=== PATIENT | male | born 1955 | race Asian ===

== ENCOUNTER 2017-03-29 14:34 | Inpatient (IN) | payer OTHER ==
[~2017-03-29] VITALS: Ht 167.6 cm; Wt 69.2 kg
[2017-03-29] MEDS ORDERED: LISI-660 PO (14:41)
[2017-03-29] MEDS ORDERED: ATOR10TA84 PO (14:41)
[2017-03-29] MEDS ORDERED: METF500T4 PO (14:41)
[2017-03-29] MEDS ORDERED: OMEG-53 PO (14:41)
[2017-03-29 16:19] LABS: GLUCOSE,POINT OF CARE 123 MG/DL (70-110)
[2017-03-29 17:10] LABS: BASOPHILS % (AUTO) 0.5 % (0.0-2.0); EOSINOPHILS % (AUTO) 1.5 % (1.0-6.0); HEMATOCRIT 44.2 % (41-53); HEMOGLOBIN 15.1 g/dL (13.5-17.5); LYMPHOCYTES # (AUTO) 1.3 K/uL (1.0-4.8); LYMPHOCYTES % (AUTO) 12.5 % (22.0-44.0); MEAN CORPUSCULAR HEMOGLOBIN 31.4 pg (26.0-34.0); MEAN CORPUSCULAR HGB CONC 34.2 G/dL (31.0-37.0); MEAN CORPUSCULAR VOLUME 92 fL (80-100); MONOCYTES # (AUTO) 0.6 K/uL (0.1-1.0); MONOCYTES % (AUTO) 5.8 % (2.0-9.0); NEUTROPHILS # (AUTO) 8.1 K/uL (1.8-7.7); NEUTROPHILS % (AUTO) 79.7 % (40.0-70.0); PLATELET COUNT (AUTO) 339 K/uL (150-450); RED BLOOD CELL COUNT(AUTO) 4.81 MIL/uL (4.50-5.90); RED CELL DISTRIBUTION WIDTH 13.3 % (11.5-14.5); WHITE BLOOD COUNT (AUTO) 10.1 K/uL (4.5-11.0)
[2017-03-29 17:27] LABS: AMMONIA 34 umol/L (11-32)
[2017-03-29 17:28] LABS: TROPONIN I < 0.02 ng/mL (0.00-0.05)
[2017-03-29 17:33] LABS: ALANINE AMINOTRANSFERASE 149 U/L (12-78); ASPARTATE AMINOTRANSFERASE 163 U/L (15-37); CALCIUM, TOTAL 8.4 mg/dL (8.8-10.5); CARBON DIOXIDE 23 mmol/L (22-29); CHLORIDE 71 mmol/L (98-107); CREATININE 0.74 mg/dL (0.60-1.30); GLOMERULAR FILTR. RATE CALC > 60 mL/min (>60); POTASSIUM 3.9 mmol/L (3.5-5.1); TOTAL PROTEIN, SERUM 8.2 g/dL (6.4-8.2); UREA NITROGEN, BLOOD 10 mg/dL (7-18)
[2017-03-29 17:38] LABS: ANION GAP 10 mmol/L (8-16); SODIUM SERUM 104 mmol/L (136-145)
[2017-03-29 17:43] LABS: B-TYPE NATRIURETIC PEPTIDE 39 pg/mL (0-100)
[2017-03-29 17:59] LABS: CREATINE KINASE MB 57.5 ng/mL (0-5); CREATINE KINASE, TOTAL 3080 U/L (39-308)
[2017-03-29] MEDS ORDERED: SODIUM CHLORIDE 3% 500 ML IV ONE (18:15)
[2017-03-29 18:44] LABS: APPEARANCE,URINE CLEAR (CLEAR); GLUCOSE, URINE (UA) NEGATIVE (NEGATIVE); KETONES,URINE 15 mg/dL (NEGATIVE); LEUKOCYTE ESTERASE ,URINE NEGATIVE (NEGATIVE); OCCULT BLOOD,URINE SMALL (NEGATIVE); PROTEIN,URINE TRACE (NEGATIVE)
[2017-03-29] MEDS ORDERED: ACETAMINOPHEN 325 MG TABLET PO PRN ×2 (18:45→19:00)
[2017-03-29] MEDS ORDERED: ONDANSETRON HCL 4 MG/2 ML VIAL IVP PRN ×2 (18:45→19:00)
[2017-03-29 18:49] LABS: ADD UA MICROSCOPIC YES
[2017-03-29 18:54] LABS: SQUAMOUS EPITHELIAL CELL,UR Few /LPF (None Seen); WBC,URINE 0-2 /HPF (0-5)
[2017-03-29] MEDS ORDERED: MAGNESIUM HYDROXIDE SUSPENSION 30 ML UDCUP PO PRN (19:00)
[2017-03-29] MEDS ORDERED: MORPHINE SULFATE 2 MG/ML SYRINGE IVP PRN (19:00)
[2017-03-29] MEDS ORDERED: HYDROCODONE/ACETAMINOPHEN 5-325 MG TABLET PO PRN (19:00)
[2017-03-29] MEDS ORDERED: SODIUM BICARBONATE 100 MEQ in SODIUM CHLORIDE 0.9% 1,000 ML IV ONE (19:00)
[2017-03-29] MEDS ORDERED: DEXTROSE 50%-WATER 25 GM/50 ML SYRINGE IVP PRN (19:15)
[2017-03-29] MEDS ORDERED: HydrALAZINE HCL 20 MG/ML VIAL IVP PRN (19:15)
[2017-03-29] MEDS ORDERED: INSULIN ASPART 100 UNITS/ML SQ PRN (19:15)
[2017-03-29] MEDS ORDERED: DESMOPRESSIN ACETATE 4 MCG/ML VIAL IVP SCH (19:23)
[2017-03-29 19:45] LABS: ABG BASE EXCESS -4.8 mmol/L (-2.0-3.0); ABG HCO3 22.3 mmol/L (22.0-26.0); ABG PCO2 23 mmHg (35-45); TEMPERATURE, FAHRENHEIT, BG 98.6 FAHREN (96.0-98.6)
[2017-03-29 20:17] LABS: GLUCOSE,POINT OF CARE 116 MG/DL (70-110)
[2017-03-29 21:18] LABS: OSMOLALITY 218 mOS/kg (270-310)
[2017-03-29 21:26] LABS: ANION GAP 14 mmol/L (8-16); CALCIUM, TOTAL 8.4 mg/dL (8.8-10.5); CARBON DIOXIDE 19 mmol/L (22-29); CHLORIDE 72 mmol/L (98-107); CHOL/HDL RATIO 2.3 (4.2-7.3); CREATININE 0.85 mg/dL (0.60-1.30); GLOMERULAR FILTR. RATE CALC > 60 mL/min (>60); UREA NITROGEN, BLOOD 13 mg/dL (7-18); URIC ACID 4.1 mg/dL (2.6-7.2)
[2017-03-29 21:34] LABS: SODIUM SERUM 105 mmol/L (136-145)
[2017-03-29 21:51] LABS: THYROID STIMULATING HORMONE 0.08 uIU/mL (0.36-3.74)
[2017-03-30] MEDS ORDERED: PIPERACILLIN SODIUM/TAZOBACTAM 2.25 GM in DEXTROSE 5%-WATER 50 ML IV ONE ×2
[2017-03-30 08:00] VITALS: BP 134/73
[2017-03-30] MEDS ORDERED: NOREPINEPHRINE 4 MG/D5%-WATER 250 ML IV PRN (08:15)
[2017-03-30] MEDS: ATORVASTATIN CALCIUM 10 MG TABLET PO SCH (09:00)
[2017-03-30] MEDS ORDERED: SODIUM CHLORIDE 3% 500 ML IV ONE (09:00)
[2017-03-30] MEDS ORDERED: SODIUM CHLORIDE 3% 500 ML IV SCH (09:30)
[2017-03-30 10:14] LABS: ANION GAP 11 mmol/L (8-16); CALCIUM, TOTAL 7.4 mg/dL (8.8-10.5); CARBON DIOXIDE 19 mmol/L (22-29); CHLORIDE 79 mmol/L (98-107); CREATININE 1.02 mg/dL (0.60-1.30); GLOMERULAR FILTR. RATE CALC > 60 mL/min (>60); POTASSIUM 4.6 mmol/L (3.5-5.1); UREA NITROGEN, BLOOD 16 mg/dL (7-18)
[2017-03-30 10:16] LABS: SODIUM SERUM 109 mmol/L (136-145)
[2017-03-30 11:56] LABS: ANION GAP 11 mmol/L (8-16); CALCIUM, TOTAL 7.5 mg/dL (8.8-10.5); CARBON DIOXIDE 20 mmol/L (22-29); CHLORIDE 80 mmol/L (98-107); GLOMERULAR FILTR. RATE CALC > 60 mL/min (>60); POTASSIUM 4.5 mmol/L (3.5-5.1); UREA NITROGEN, BLOOD 15 mg/dL (7-18)
[2017-03-30 11:59] LABS: SODIUM SERUM 111 mmol/L (136-145)
[2017-03-30 12:00] VITALS: BP 114/55
[2017-03-30] MEDS: ACETAMINOPHEN 650 MG RECTAL SUPPOSITORY PR PRN (15:52)
[2017-03-30 16:00] VITALS: BP 118/63
[2017-03-30] MEDS ORDERED: VANCOMYCIN HCL 1 GM/D5% WATER 200 ML IV ONE (18:45)
[2017-03-30 20:00] VITALS: BP 115/91
[2017-03-30 21:24] LABS: ANION GAP 13 mmol/L (8-16); CALCIUM, TOTAL 7.8 mg/dL (8.8-10.5); CARBON DIOXIDE 18 mmol/L (22-29); CHLORIDE 82 mmol/L (98-107); CREATININE 0.93 mg/dL (0.60-1.30); GLOMERULAR FILTR. RATE CALC > 60 mL/min (>60); POTASSIUM 3.6 mmol/L (3.5-5.1); UREA NITROGEN, BLOOD 14 mg/dL (7-18)
[2017-03-30] MEDS: PIPERACILLIN/TAZO 3.375 GM/D5W 50 ML IV SCH (21:33)
[2017-03-30 21:37] LABS: SODIUM SERUM 113 mmol/L (136-145)
[2017-03-30 23:22] LABS: GLUCOSE,POINT OF CARE 106 MG/DL (70-110)
[2017-03-30 23:23] LABS: GLUCOSE,POINT OF CARE 90 MG/DL (70-110)
[2017-03-30 23:23] LABS: GLUCOSE,POINT OF CARE 138 MG/DL (70-110)
[2017-03-31] VITALS: BP 111/67
[2017-03-31] MEDS: PIPERACILLIN/TAZO 3.375 GM/D5W 50 ML IV SCH ×4 (02:46→20:10)
[2017-03-31 04:00] VITALS: BP 97/50
[2017-03-31 06:14] LABS: ANION GAP 12 mmol/L (8-16); CALCIUM, TOTAL 7.9 mg/dL (8.8-10.5); CARBON DIOXIDE 18 mmol/L (22-29); CHLORIDE 84 mmol/L (98-107); CREATINE KINASE MB 10.5 ng/mL (0-5); CREATININE 0.99 mg/dL (0.60-1.30); GLOMERULAR FILTR. RATE CALC > 60 mL/min (>60); POTASSIUM 3.8 mmol/L (3.5-5.1); UREA NITROGEN, BLOOD 11 mg/dL (7-18)
[2017-03-31] MEDS: VANCOMYCIN HCL 1 GM/D5% WATER 200 ML IV SCH ×2 (06:26→20:09)
[2017-03-31 06:41] LABS: CREATINE KINASE, TOTAL 2184 U/L (39-308)
[2017-03-31 06:43] LABS: SODIUM SERUM 114 mmol/L (136-145)
[2017-03-31 07:02] LABS: GLUCOSE,POINT OF CARE 112 MG/DL (70-110)
[2017-03-31 08:00] VITALS: BP 115/70
[2017-03-31 08:07] LABS: HEPATITIS Bs ANTIGEN SCREEN P Negative (Negative); HEPATITIS C AB SCREEN <0.1 s/co ratio (0.0-0.9)
[2017-03-31 09:17] LABS: ANION GAP 11 mmol/L (8-16); CALCIUM, TOTAL 8.1 mg/dL (8.8-10.5); CARBON DIOXIDE 18 mmol/L (22-29); CHLORIDE 84 mmol/L (98-107); GLOMERULAR FILTR. RATE CALC > 60 mL/min (>60); POTASSIUM 3.8 mmol/L (3.5-5.1); UREA NITROGEN, BLOOD 9 mg/dL (7-18)
[2017-03-31 09:19] LABS: SODIUM SERUM 113 mmol/L (136-145)
[2017-03-31] MEDS ORDERED: SODIUM CHLORIDE 3% 500 ML IV SCH ×2 (10:00)
[2017-03-31] MEDS: ATORVASTATIN CALCIUM 10 MG TABLET PO SCH (10:33)
[2017-03-31 12:00] VITALS: BP 118/75
[2017-03-31] MEDS ORDERED: METOPROLOL TARTRATE 25 MG TABLET PO SCH (14:00)
[2017-03-31 14:34] LABS: GLUCOSE,POINT OF CARE 114 MG/DL (70-110)
[2017-03-31 16:00] VITALS: BP 114/60
[2017-03-31 18:22] LABS: GLUCOSE,POINT OF CARE 108 MG/DL (70-110)
[2017-03-31 20:00] VITALS: BP 138/87
[2017-03-31 20:41] LABS: ANION GAP 12 mmol/L (8-16); CARBON DIOXIDE 18 mmol/L (22-29); CHLORIDE 87 mmol/L (98-107); CREATININE 1.04 mg/dL (0.60-1.30); GLOMERULAR FILTR. RATE CALC > 60 mL/min (>60); POTASSIUM 3.5 mmol/L (3.5-5.1); UREA NITROGEN, BLOOD 11 mg/dL (7-18)
[2017-03-31 20:51] LABS: SODIUM SERUM 117 mmol/L (136-145)
[2017-03-31 21:32] LABS: GLUCOSE,POINT OF CARE 113 MG/DL (70-110)
[2017-03-31] MEDS ORDERED: POTASSIUM CHLORIDE 20 MEQ ER TABLET PO ONE (22:00)
[2017-04-01] VITALS (7 sets, daily range): BP systolic 94–107; BP diastolic 55–69
[2017-04-01] MEDS ORDERED: SODIUM CHLORIDE 0.9% 250 ML IV ONE (03:13)
[2017-04-01 03:14] LABS: ANION GAP 11 mmol/L (8-16); CALCIUM, TOTAL 7.8 mg/dL (8.8-10.5); CARBON DIOXIDE 18 mmol/L (22-29); CHLORIDE 90 mmol/L (98-107); CREATININE 1.07 mg/dL (0.60-1.30); GLOMERULAR FILTR. RATE CALC > 60 mL/min (>60); POTASSIUM 3.9 mmol/L (3.5-5.1); UREA NITROGEN, BLOOD 10 mg/dL (7-18)
[2017-04-01 03:23] LABS: SODIUM SERUM 119 mmol/L (136-145)
[2017-04-01] MEDS: PIPERACILLIN/TAZO 3.375 GM/D5W 50 ML IV SCH ×4 (03:33→19:44)
[2017-04-01] MEDS: VANCOMYCIN HCL 1 GM/D5% WATER 200 ML IV SCH (06:24)
[2017-04-01 07:06] LABS: ANION GAP 13 mmol/L (8-16); CALCIUM, TOTAL 8.1 mg/dL (8.8-10.5); CARBON DIOXIDE 16 mmol/L (22-29); CHLORIDE 91 mmol/L (98-107); CREATININE 1.03 mg/dL (0.60-1.30); GLOMERULAR FILTR. RATE CALC > 60 mL/min (>60); UREA NITROGEN, BLOOD 10 mg/dL (7-18)
[2017-04-01 07:33] LABS: GLUCOSE,POINT OF CARE 104 MG/DL (70-110)
[2017-04-01 07:47] LABS: SODIUM SERUM 120 mmol/L (136-145)
[2017-04-01] MEDS: SODIUM CHLORIDE 3% 500 ML IV SCH ×2 (11:28→12:54)
[2017-04-01] MEDS ORDERED: VANCOMYCIN HCL 1 GM/D5% WATER 200 ML IV SCH (16:00)
[2017-04-01] MEDS: ACETAMINOPHEN 650 MG RECTAL SUPPOSITORY PR PRN (20:01)
[2017-04-01 20:40] LABS: GLUCOSE,POINT OF CARE 112 MG/DL (70-110)
[2017-04-01 20:40] LABS: GLUCOSE,POINT OF CARE 117 MG/DL (70-110)
[2017-04-01] MEDS ORDERED: SODIUM CHLORIDE 3% 500 ML IV SCH (21:15)
[2017-04-02] MEDS: PIPERACILLIN/TAZO 3.375 GM/D5W 50 ML IV SCH ×3 (01:39→14:43)
[2017-04-02 04:33] VITALS: BP 103/60
[2017-04-02 05:58] LABS: GLUCOSE,POINT OF CARE 119 MG/DL (70-110)
[2017-04-02 06:50] LABS: BASOPHILS # (AUTO) 0.04 K/uL (0.00-0.20); BASOPHILS % (AUTO) 0.6 % (0.0-2.0); EOSINOPHILS # (AUTO) 0.16 K/uL (0.00-0.70); EOSINOPHILS % (AUTO) 2.66 % (1.0-6.0); HEMATOCRIT 38.1 % (41-53); HEMOGLOBIN 12.9 g/dL (13.5-17.5); LYMPHOCYTES # (AUTO) 1.1 K/uL (1.0-4.8); LYMPHOCYTES % (AUTO) 18.8 % (22.0-44.0); MEAN CORPUSCULAR HGB CONC 33.8 G/dL (31.0-37.0); MEAN CORPUSCULAR VOLUME 92 fL (80-100); MONOCYTES # (AUTO) 0.5 K/uL (0.1-1.0); MONOCYTES % (AUTO) 7.7 % (2.0-9.0); NEUTROPHILS # (AUTO) 4.3 K/uL (1.8-7.7); NEUTROPHILS % (AUTO) 70.3 % (40.0-70.0); PLATELET COUNT (AUTO) 297 K/uL (150-450); RED BLOOD CELL COUNT(AUTO) 4.16 MIL/uL (4.50-5.90); RED CELL DISTRIBUTION WIDTH 13.9 % (11.5-14.5); WHITE BLOOD COUNT (AUTO) 6.1 K/uL (4.5-11.0)
[2017-04-02 07:22] VITALS: BP 99/55
[2017-04-02 07:32] LABS: ANION GAP 10 mmol/L (8-16); CALCIUM, TOTAL 7.6 mg/dL (8.8-10.5); CARBON DIOXIDE 20 mmol/L (22-29); CHLORIDE 95 mmol/L (98-107); CREATININE 0.95 mg/dL (0.60-1.30); GLOMERULAR FILTR. RATE CALC > 60 mL/min (>60); POTASSIUM 3.4 mmol/L (3.5-5.1); SODIUM SERUM 125 mmol/L (136-145); UREA NITROGEN, BLOOD 6 mg/dL (7-18)
[2017-04-02 07:58] LABS: PROCALCITONIN (PCT) 0.42 ng/mL (<0.50)
[2017-04-02 12:04] VITALS: BP 117/57
[2017-04-02 15:21] LABS: GLUCOSE,POINT OF CARE 89 MG/DL (70-110)
[2017-04-02 16:16] VITALS: BP 112/63
[2017-04-02 19:55] VITALS: BP 125/63
[2017-04-02 23:20] VITALS: BP 121/79
[2017-04-03 03:43] VITALS: BP 114/69
[2017-04-03] MEDS ORDERED: COSYNTROPIN 0.25 MG VIAL IVP ONE (07:00)
[2017-04-03 07:05] LABS: ANION GAP 9 mmol/L (8-16); CARBON DIOXIDE 24 mmol/L (22-29); CHLORIDE 94 mmol/L (98-107); CREATININE 0.98 mg/dL (0.60-1.30); GLOMERULAR FILTR. RATE CALC > 60 mL/min (>60); POTASSIUM 3.5 mmol/L (3.5-5.1); SODIUM SERUM 127 mmol/L (136-145); UREA NITROGEN, BLOOD 5 mg/dL (7-18)
[2017-04-03 07:34] VITALS: BP 122/77
[2017-04-03] MEDS ORDERED: POTASSIUM CHLORIDE 20 MEQ ER TABLET PO ONE (09:00)
[2017-04-03] MEDS: SODIUM CHLORIDE 1 GM TABLET PO SCH ×2 (09:45→17:08)
[2017-04-03 11:09] LABS: GLUCOSE,POINT OF CARE 132 MG/DL (70-110)
[2017-04-03 11:11] VITALS: BP 135/82
[2017-04-03 11:14] LABS: GLUCOSE,POINT OF CARE 92 MG/DL (70-110)
[2017-04-03] MEDS ORDERED: NACL1 PO (13:12)
[2017-04-03 15:28] LABS: GLUCOSE COMMENT 1 Received Meds; GLUCOSE,POINT OF CARE 158 MG/DL (70-110)
[2017-04-03 15:28] LABS: GLUCOSE,POINT OF CARE 129 MG/DL (70-110)
[2017-04-03 15:28] LABS: GLUCOSE,POINT OF CARE 103 MG/DL (70-110)
[2017-04-03 15:55] VITALS: BP 122/79
== END 2017-04-03 17:30 | disposition home or self-care (01) | DRG 425 ==
LOC: EMS 14:36 → ICU 03-30 06:08 → 5N 04-01 02:25
PROVIDERS: ADMIT Hospitalist; ATTEND Hospitalist
DX: E87.1 Hypo-osmolality and hyponatremia (principal); G93.41 Metabolic encephalopathy; A86 Unspecified viral encephalitis; J84.10 Pulmonary fibrosis, unspecified; M62.82 Rhabdomyolysis; R65.10 Systemic inflammatory response syndrome (SIRS) of non-infectious origin without acute organ dysfunction; I10 Essential (primary) hypertension; E11.9 Type 2 diabetes mellitus without complications; R31.29 Other microscopic hematuria; J98.11 Atelectasis; E78.00 Pure hypercholesterolemia, unspecified
CPT/HCPCS: 51702; 70450; 71250; 74176; 76700; 80074; 82533; 82805; 82962; 83036; 83930; 83935; 84133; 84145; 84295; 84300; 84439; 84443; 84540; 84550; 86140; 87040; 87081; 87086; 93005; 96365; 96366; 96372; 96375; 97116; 97162; 97530; 99291; J0834; J2543; J2597; J3230; J3370; J3490; J7030; J7050; J7060

== ENCOUNTER 2019-04-01 13:15 | Inpatient (IN) | payer MEDICARE, OTHER ==
[~2019-04-01] VITALS: Ht 167.6 cm; Wt 72.5 kg
[~2019-04-01 13:15] MED LIST: ATOR40TA71 PO; FISH1 PO; METF-960 PO; NACL1 PO
[2019-04-01 14:46] LABS: EOSINOPHILS % (AUTO) 4.6 % (1.0-6.0); HEMATOCRIT 34.7 % (41-53); HEMOGLOBIN 11.8 g/dL (13.5-17.5); LYMPHOCYTES # (AUTO) 1.6 K/uL (1.0-4.8); LYMPHOCYTES % (AUTO) 30.9 % (22.0-44.0); MEAN CORPUSCULAR HEMOGLOBIN 29.8 pg (26.0-34.0); MEAN CORPUSCULAR HGB CONC 34.1 G/dL (31.0-37.0); MEAN CORPUSCULAR VOLUME 88 fL (80-100); MONOCYTES # (AUTO) 0.4 K/uL (0.1-1.0); MONOCYTES % (AUTO) 7.5 % (2.0-9.0); NEUTROPHILS # (AUTO) 2.9 K/uL (1.8-7.7); PLATELET COUNT (AUTO) 362 K/uL (150-450); RED BLOOD CELL COUNT(AUTO) 3.96 MIL/uL (4.50-5.90)
[2019-04-01 15:00] LABS: INR 1.1 (0.9-1.1); PROTHROMBIN TIME 10.9 SEC (9.4-11.6)
[2019-04-01 15:05] LABS: B-TYPE NATRIURETIC PEPTIDE 14 pg/mL (0-100)
[2019-04-01 15:06] LABS: APPEARANCE,URINE CLEAR (CLEAR); BILIRUBIN,URINE NEGATIVE (NEGATIVE); GLUCOSE, URINE (UA) NEGATIVE (NEGATIVE); KETONES,URINE NEGATIVE (NEGATIVE); LEUKOCYTE ESTERASE ,URINE NEGATIVE (NEGATIVE); NITRATE,URINE NEGATIVE (NEGATIVE); OCCULT BLOOD,URINE NEGATIVE (NEGATIVE); PROTEIN,URINE NEGATIVE (NEGATIVE)
[2019-04-01 15:15] LABS: ALANINE AMINOTRANSFERASE 32 U/L (12-78); ALBUMIN 3.5 g/dL (3.4-5.0); ALKALINE PHOSPHATASE 132 U/L (46-116); ASPARTATE AMINOTRANSFERASE 50 U/L (15-37); BILIRUBIN,TOTAL 0.8 mg/dL (0.1-1.0); CALCIUM, TOTAL 8.7 mg/dL (8.8-10.5); CREATINE KINASE, TOTAL ONLY 461 U/L (39-308); GLOMERULAR FILTR. RATE CALC > 60 mL/min (>60); GLUCOSE,RANDOM 94 mg/dL (70-110); TOTAL PROTEIN, SERUM 6.7 g/dL (6.4-8.2); UREA NITROGEN, BLOOD 9 mg/dL (7-18)
[2019-04-01 15:16] LABS: ANION GAP 3 mmol/L (8-16); CARBON DIOXIDE 28 mmol/L (22-29); CHLORIDE 86 mmol/L (98-107); POTASSIUM 3.7 mmol/L (3.5-5.1)
[2019-04-01 15:18] LABS: SODIUM SERUM 117 mmol/L (136-145)
[2019-04-01] MEDS ORDERED: ACETAMINOPHEN 325 MG TABLET PO PRN (15:45)
[2019-04-01] MEDS ORDERED: SODIUM CHLORIDE 3% 500 ML IV ONE (15:45)
[2019-04-01] MEDS ORDERED: 0.9% SODIUM CHLORIDE 10 ML SYRINGE IVP PRN (15:45)
[2019-04-01 17:56] VITALS: BP 144/88
[2019-04-01 18:05] LABS: ALANINE AMINOTRANSFERASE 32 U/L (12-78); ALBUMIN 3.2 g/dL (3.4-5.0); ALKALINE PHOSPHATASE 120 U/L (46-116); ANION GAP 13 mmol/L (8-16); ASPARTATE AMINOTRANSFERASE 50 U/L (15-37); BILIRUBIN,TOTAL 0.8 mg/dL (0.1-1.0); CARBON DIOXIDE 23 mmol/L (22-29); CHLORIDE 84 mmol/L (98-107); CREATININE 0.89 mg/dL (0.60-1.30); GLOMERULAR FILTR. RATE CALC > 60 mL/min (>60); GLUCOSE,RANDOM 91 mg/dL (70-110); POTASSIUM 3.5 mmol/L (3.5-5.1); TOTAL PROTEIN, SERUM 6.2 g/dL (6.4-8.2); UREA NITROGEN, BLOOD 10 mg/dL (7-18)
[2019-04-01 18:15] LABS: SODIUM SERUM 120 mmol/L (136-145)
[2019-04-01 20:14] VITALS: BP 149/93
[2019-04-01 23:41] VITALS: BP 131/74
[2019-04-02 05:26] VITALS: BP 126/66
[2019-04-02 06:40] LABS: EOSINOPHILS % (AUTO) 3.3 % (1.0-6.0); HEMATOCRIT 34.5 % (41-53); HEMOGLOBIN 11.8 g/dL (13.5-17.5); LYMPHOCYTES # (AUTO) 1.6 K/uL (1.0-4.8); LYMPHOCYTES % (AUTO) 31.6 % (22.0-44.0); MEAN CORPUSCULAR HGB CONC 34.3 G/dL (31.0-37.0); MEAN CORPUSCULAR VOLUME 88 fL (80-100); MONOCYTES # (AUTO) 0.4 K/uL (0.1-1.0); NEUTROPHILS # (AUTO) 2.8 K/uL (1.8-7.7); NEUTROPHILS % (AUTO) 56.1 % (40.0-70.0); PLATELET COUNT (AUTO) 357 K/uL (150-450); RED BLOOD CELL COUNT(AUTO) 3.94 MIL/uL (4.50-5.90); RED CELL DISTRIBUTION WIDTH 14.3 % (11.5-14.5)
[2019-04-02 07:15] LABS: ALANINE AMINOTRANSFERASE 35 U/L (12-78); ALBUMIN 3.4 g/dL (3.4-5.0); ALKALINE PHOSPHATASE 142 U/L (46-116); ANION GAP 8 mmol/L (8-16); ASPARTATE AMINOTRANSFERASE 53 U/L (15-37); BILIRUBIN,TOTAL 0.9 mg/dL (0.1-1.0); CALCIUM, TOTAL 8.3 mg/dL (8.8-10.5); CARBON DIOXIDE 24 mmol/L (22-29); CHLORIDE 90 mmol/L (98-107); CREATININE 0.88 mg/dL (0.60-1.30); GLOMERULAR FILTR. RATE CALC > 60 mL/min (>60); GLUCOSE,RANDOM 80 mg/dL (70-110); POTASSIUM 3.9 mmol/L (3.5-5.1); THYROID STIMULATING HORMONE 0.62 uIU/mL (0.36-3.74); TOTAL PROTEIN, SERUM 6.6 g/dL (6.4-8.2); UREA NITROGEN, BLOOD 7 mg/dL (7-18)
[2019-04-02 07:17] LABS: SODIUM SERUM 122 mmol/L (136-145)
[2019-04-02 07:26] LABS: URIC ACID 2.6 mg/dL (2.6-7.2)
[2019-04-02 08:16] VITALS: BP 114/76
[2019-04-02] MEDS ORDERED: SODIUM CHLORIDE 3% 500 ML IV SCH (11:00)
[2019-04-02 11:03] VITALS: BP 125/68
[2019-04-02 15:59] VITALS: BP 142/76
[2019-04-02 20:16] VITALS: BP 128/75
[2019-04-03] VITALS (7 sets, daily range): BP systolic 110–135; BP diastolic 57–76
[2019-04-03 00:20] LABS: CREATININE,URINE RANDOM 44.4 mg/dL (30.0-125.0)
[2019-04-03 11:31] LABS: ANION GAP 8 mmol/L (8-16); CALCIUM, TOTAL 8.6 mg/dL (8.8-10.5); CARBON DIOXIDE 25 mmol/L (22-29); CHLORIDE 93 mmol/L (98-107); CREATININE 0.96 mg/dL (0.60-1.30); GLOMERULAR FILTR. RATE CALC > 60 mL/min (>60); GLUCOSE,RANDOM 98 mg/dL (70-110); SODIUM SERUM 126 mmol/L (136-145); UREA NITROGEN, BLOOD 7 mg/dL (7-18)
[2019-04-03 11:44] LABS: OSMOLALITY 258 mOS/kg (270-310)
[2019-04-03] MEDS: FLUDROCORTISONE ACETATE 0.1 MG TABLET PO SCH (12:44)
[2019-04-03 14:29] LABS: SODIUM SERUM 127 mmol/L (136-145)
[2019-04-03 14:35] LABS: OSMOLALITY 264 mOS/kg (270-310)
[2019-04-03] MEDS ORDERED: SODIUM CHLORIDE 1 GM TABLET PO ONE (15:00)
[2019-04-04 04:52] VITALS: BP 131/72
[2019-04-04 07:06] LABS: ANION GAP 8 mmol/L (8-16); CALCIUM, TOTAL 8.5 mg/dL (8.8-10.5); CARBON DIOXIDE 28 mmol/L (22-29); CHLORIDE 93 mmol/L (98-107); CREATININE 0.84 mg/dL (0.60-1.30); GLOMERULAR FILTR. RATE CALC > 60 mL/min (>60); GLUCOSE,RANDOM 91 mg/dL (70-110); SODIUM SERUM 129 mmol/L (136-145); UREA NITROGEN, BLOOD 9 mg/dL (7-18)
[2019-04-04 08:22] VITALS: BP 122/75
[2019-04-04 12:00] VITALS: BP 136/74
[2019-04-04] MEDS: FLUDROCORTISONE ACETATE 0.1 MG TABLET PO SCH (12:39)
[2019-04-04] MEDS ORDERED: MAGNESIUM HYDROXIDE SUSPENSION 30 ML UDCUP PO PRN (13:15)
[2019-04-04] MEDS ORDERED: HYDROCODONE/ACETAMINOPHEN 5-325 MG TABLET PO PRN (13:15)
[2019-04-04] MEDS ORDERED: ALBUTEROL SULFATE 2.5 MG/0.5 ML NEB SOLUTION NEB PRN (13:15)
[2019-04-04] MEDS ORDERED: MORPHINE SULFATE 2 MG/ML SYRINGE IVP PRN (13:15)
[2019-04-04] MEDS ORDERED: ONDANSETRON HCL 4 MG/2 ML VIAL IVP PRN (13:15)
[2019-04-04] MEDS ORDERED: BISACODYL 10 MG RECTAL RECTAL SUPPOSITORY PR PRN (13:15)
[2019-04-04] MEDS ORDERED: ACETAMINOPHEN 325 MG TABLET PO PRN (13:15)
[2019-04-04] MEDS ORDERED: ZOLPIDEM TARTRATE 5 MG TABLET PO PRN (13:15)
[2019-04-04] MEDS ORDERED: IPRATROPIUM BROMIDE 0.5 MG/2.5 ML NEB SOLUTION NEB PRN (13:15)
[2019-04-04 14:56] VITALS: BP 136/78
[2019-04-04] MEDS ORDERED: HEPARIN SODIUM,PORCINE 5,000 UNITS/ML VIAL SQ SCH (16:00)
[2019-04-04] MEDS ORDERED: FLUD.1 PO (17:09)
[2019-04-04] MEDS ORDERED: DOCUSATE SODIUM 100 MG CAPSULE PO SCH (21:00)
== END 2019-04-04 17:30 | disposition home or self-care (01) | DRG 641 ==
LOC: EMS 13:18 → 5S 16:30
PROVIDERS: ADMIT Hospitalist; ATTEND Hospitalist
DX: E87.1 Hypo-osmolality and hyponatremia (principal); I10 Essential (primary) hypertension; E11.9 Type 2 diabetes mellitus without complications; E78.5 Hyperlipidemia, unspecified; E78.00 Pure hypercholesterolemia, unspecified; Z79.84 Long term (current) use of oral hypoglycemic drugs
CPT/HCPCS: 82533; 82570; 83036; 83930; 84133; 84295; 84300; 84443; 84550; 93005; G0378; J7030

== ENCOUNTER → 2019-04-11 | Outpatient (CLI) | payer MEDICARE, OTHER ==
[~2019-04-11] MED LIST changes: +FLUD.1 PO; -NACL1 PO
[2019-04-11 12:59] LABS: BASOPHILS % (AUTO) 1.2 % (0.0-2.0); EOSINOPHILS % (AUTO) 5.5 % (1.0-6.0); HEMATOCRIT 35.2 % (41-53); HEMOGLOBIN 12.2 g/dL (13.5-17.5); LYMPHOCYTES # (AUTO) 1.8 K/uL (1.0-4.8); LYMPHOCYTES % (AUTO) 34.7 % (22.0-44.0); MEAN CORPUSCULAR HEMOGLOBIN 30.2 pg (26.0-34.0); MEAN CORPUSCULAR HGB CONC 34.7 G/dL (31.0-37.0); MEAN CORPUSCULAR VOLUME 87 fL (80-100); MONOCYTES # (AUTO) 0.2 K/uL (0.1-1.0); MONOCYTES % (AUTO) 3.9 % (2.0-9.0); NEUTROPHILS # (AUTO) 2.9 K/uL (1.8-7.7); NEUTROPHILS % (AUTO) 54.7 % (40.0-70.0); PLATELET COUNT (AUTO) 448 K/uL (150-450); RED BLOOD CELL COUNT(AUTO) 4.04 MIL/uL (4.50-5.90); RED CELL DISTRIBUTION WIDTH 14.2 % (11.5-14.5)
[2019-04-11 13:10] LABS: ALBUMIN 3.8 g/dL (3.4-5.0); ANION GAP 7 mmol/L (8-16); CALCIUM, TOTAL 8.7 mg/dL (8.8-10.5); CARBON DIOXIDE 29 mmol/L (22-29); CHLORIDE 89 mmol/L (98-107); CREATININE 1.01 mg/dL (0.60-1.30); GLOMERULAR FILTR. RATE CALC > 60 mL/min (>60); GLUCOSE,RANDOM 88 mg/dL (70-110); PHOSPHORUS 3.5 mg/dL (2.5-4.9); POTASSIUM 3.6 mmol/L (3.5-5.1); SODIUM SERUM 125 mmol/L (136-145); UREA NITROGEN, BLOOD 11 mg/dL (7-18)
[2019-04-11 13:40] LABS: APPEARANCE,URINE CLEAR (CLEAR); BILIRUBIN,URINE PRELIM. POSITIVE (NEGATIVE); GLUCOSE, URINE (UA) NEGATIVE (NEGATIVE); KETONES,URINE NEGATIVE (NEGATIVE); LEUKOCYTE ESTERASE ,URINE NEGATIVE (NEGATIVE); NITRATE,URINE NEGATIVE (NEGATIVE); OCCULT BLOOD,URINE NEGATIVE (NEGATIVE); PROTEIN,URINE NEGATIVE (NEGATIVE)
[2019-04-11 13:51] LABS: OSMOLALITY,URINE 729 mOS/kg (50-1200)
[2019-04-11 14:37] LABS: POTASSIUM,URINE RANDOM 80 mmol/L (12-75); SODIUM,URINE RANDOM 13 mmol/l (20-110)
== END | disposition home or self-care (01) ==
LOC: LABPV 11:33
PROVIDERS: ATTEND Internal Medicine Nephrology
DX: I10 Essential (primary) hypertension (principal); E87.1 Hypo-osmolality and hyponatremia
CPT/HCPCS: 82043; 82570; 83935; 84133; 84300

== ENCOUNTER 2024-09-03 20:25 | Inpatient (IN) | payer OTHER ==
[~2024-09-03] VITALS: Ht 167.6 cm; Wt 65.8 kg
[~2024-09-03 20:25] MED LIST changes: +METF-1211 PO; -METF-960 PO
[2024-09-03] MEDS ORDERED: LISI5TAB21 PO (20:45)
[2024-09-03] MEDS ORDERED: METF-444 PO (20:45)
[2024-09-03 21:25] LABS: BASOPHILS % (AUTO) 0.5 % (0.0-2.0); EOSINOPHILS % (AUTO) 2.1 % (1.0-6.0); HEMOGLOBIN 13.6 g/dL (13.5-17.5); LYMPHOCYTES % (AUTO) 12.6 % (22.0-44.0); MEAN CORPUSCULAR HEMOGLOBIN 30.5 pg (26.0-34.0); MEAN CORPUSCULAR VOLUME 87 fL (80-100); MONOCYTES # (AUTO) 0.4 K/uL (0.1-1.0); MONOCYTES % (AUTO) 5.4 % (2.0-9.0); NEUTROPHILS # (AUTO) 6.2 K/uL (1.8-7.7); NEUTROPHILS % (AUTO) 79.4 % (40.0-70.0); PLATELET COUNT (AUTO) 394 K/uL (150-450); RED BLOOD CELL COUNT(AUTO) 4.47 MIL/uL (4.50-5.90); RED CELL DISTRIBUTION WIDTH 13.7 % (11.5-14.5); WHITE BLOOD COUNT (AUTO) 7.8 K/uL (4.5-11.0)
[2024-09-03 21:33] LABS: ANION GAP 10 mmol/L (8-16); CALCIUM, TOTAL 8.6 mg/dL (8.8-10.5); CARBON DIOXIDE 23 mmol/L (22-29); CHLORIDE 77 mmol/L (98-107); CREATININE 0.82 mg/dL (0.60-1.30); GLOMERULAR FILTR. RATE CALC > 60 mL/min (>60); GLUCOSE,RANDOM 116 mg/dL (70-110); POTASSIUM 4.7 mmol/L (3.5-5.1); UREA NITROGEN, BLOOD 13 mg/dL (7-18)
[2024-09-03 21:35] LABS: SODIUM SERUM 110 mmol/L (136-145)
[2024-09-03 22:28] LABS: ALCOHOL, BLOOD (SERUM) < 3 mg/dL (0-10)
[2024-09-03] MEDS ORDERED: ACETAMINOPHEN 325 MG TABLET PO PRN (22:30)
[2024-09-03] MEDS ORDERED: ONDANSETRON HCL 4 MG/2 ML VIAL IVP PRN (22:30)
[2024-09-03 22:33] LABS: LIPASE 89 U/L (16-77); TROPONIN I-HIGH SENSITIVITY 6 ng/L (<76)
[2024-09-03] MEDS: SODIUM CHLORIDE 3% 500 ML IV ONE ×2 (22:38→23:58)
[2024-09-03 22:39] LABS: B-TYPE NATRIURETIC PEPTIDE 23 pg/mL (0-100)
[2024-09-03 23:21] LABS: POTASSIUM 4.6 mmol/L (3.5-5.1)
[2024-09-03] MEDS: HEPARIN SODIUM,PORCINE 5,000 UNITS/ML VIAL SQ SCH (23:59)
[2024-09-04] MEDS ORDERED: DEXTROSE 50%-WATER 25 GM/50 ML SYRINGE IVP PRN (00:30)
[2024-09-04] MEDS ORDERED: INSULIN LISPRO 100 UNITS/ML SQ PRN (00:30)
[2024-09-04 02:59] LABS: ANION GAP 12 mmol/L (8-16); CALCIUM, TOTAL 8.2 mg/dL (8.8-10.5); CARBON DIOXIDE 22 mmol/L (22-29); CHLORIDE 77 mmol/L (98-107); CREATININE 0.72 mg/dL (0.60-1.30); GLOMERULAR FILTR. RATE CALC > 60 mL/min (>60); GLUCOSE,RANDOM 94 mg/dL (70-110); UREA NITROGEN, BLOOD 12 mg/dL (7-18)
[2024-09-04 03:04] LABS: SODIUM SERUM 111 mmol/L (136-145)
[2024-09-04 05:59] LABS: BASOPHILS % (AUTO) 0.4 % (0.0-2.0); EOSINOPHILS % (AUTO) 2.3 % (1.0-6.0); HEMATOCRIT 36.8 % (41-53); HEMOGLOBIN 13.1 g/dL (13.5-17.5); LYMPHOCYTES # (AUTO) 1.2 K/uL (1.0-4.8); LYMPHOCYTES % (AUTO) 17.1 % (22.0-44.0); MEAN CORPUSCULAR HEMOGLOBIN 30.8 pg (26.0-34.0); MEAN CORPUSCULAR HGB CONC 35.6 G/dL (31.0-37.0); MEAN CORPUSCULAR VOLUME 87 fL (80-100); MONOCYTES # (AUTO) 0.4 K/uL (0.1-1.0); MONOCYTES % (AUTO) 6.1 % (2.0-9.0); NEUTROPHILS # (AUTO) 5.2 K/uL (1.8-7.7); NEUTROPHILS % (AUTO) 74.1 % (40.0-70.0); PLATELET COUNT (AUTO) 392 K/uL (150-450); RED BLOOD CELL COUNT(AUTO) 4.26 MIL/uL (4.50-5.90); RED CELL DISTRIBUTION WIDTH 13.4 % (11.5-14.5); WHITE BLOOD COUNT (AUTO) 7.1 K/uL (4.5-11.0)
[2024-09-04 06:01] LABS: ANION GAP 11 mmol/L (8-16); CALCIUM, TOTAL 7.8 mg/dL (8.8-10.5); CARBON DIOXIDE 21 mmol/L (22-29); CHLORIDE 80 mmol/L (98-107); CREATININE 0.71 mg/dL (0.60-1.30); GLOMERULAR FILTR. RATE CALC > 60 mL/min (>60); GLUCOSE,RANDOM 98 mg/dL (70-110); POTASSIUM 3.5 mmol/L (3.5-5.1); UREA NITROGEN, BLOOD 12 mg/dL (7-18)
[2024-09-04 06:05] LABS: SODIUM SERUM 112 mmol/L (136-145)
[2024-09-04 07:26] LABS: ANION GAP 11 mmol/L (8-16); CALCIUM, TOTAL 7.7 mg/dL (8.8-10.5); CARBON DIOXIDE 21 mmol/L (22-29); CHLORIDE 80 mmol/L (98-107); CREATININE 0.71 mg/dL (0.60-1.30); GLOMERULAR FILTR. RATE CALC > 60 mL/min (>60); GLUCOSE,RANDOM 92 mg/dL (70-110); POTASSIUM 3.7 mmol/L (3.5-5.1); UREA NITROGEN, BLOOD 11 mg/dL (7-18)
[2024-09-04 07:27] LABS: SODIUM SERUM 112 mmol/L (136-145)
[2024-09-04] MEDS: DOCUSATE SODIUM 100 MG CAPSULE PO SCH (09:46)
[2024-09-04 10:03] LABS: APPEARANCE,URINE CLEAR (CLEAR); BACTERIA,URINE None Seen /HPF (None Seen); BILIRUBIN,URINE NEGATIVE (NEGATIVE); COLOR,URINE LIGHT YELLOW (YELLOW); GLUCOSE, URINE (UA) NEGATIVE (NEGATIVE); KETONES,URINE NEGATIVE (NEGATIVE); LEUKOCYTE ESTERASE ,URINE NEGATIVE (NEGATIVE); NITRATE,URINE NEGATIVE (NEGATIVE); OCCULT BLOOD,URINE NEGATIVE (NEGATIVE); PH,URINE 6.5 (5.0-8.0); PROTEIN,URINE NEGATIVE (NEGATIVE); RBC,URINE None Seen /HPF (0-2); SPECIFIC GRAVITIY, URINE 1.015 (1.003-1.030); UROBILINOGEN,URINE <=1.0 mg/dL (<=1.0); WBC,URINE None Seen /HPF (0-5)
[2024-09-04 10:15] LABS: SODIUM,URINE RANDOM 65 mmol/l (20-110)
[2024-09-04 13:36] LABS: ANION GAP 10 mmol/L (8-16); CALCIUM, TOTAL 7.8 mg/dL (8.8-10.5); CARBON DIOXIDE 18 mmol/L (22-29); CHLORIDE 83 mmol/L (98-107); CREATININE 0.69 mg/dL (0.60-1.30); GLOMERULAR FILTR. RATE CALC > 60 mL/min (>60); GLUCOSE,RANDOM 95 mg/dL (70-110); UREA NITROGEN, BLOOD 11 mg/dL (7-18)
[2024-09-04 13:39] LABS: SODIUM SERUM 111 mmol/L (136-145)
[2024-09-04] MEDS: SODIUM CHLORIDE 3% 500 ML IV ONE (15:59)
[2024-09-04 16:30] VITALS: BP 126/56; PULSE 62; RESP 16; TEMP 98.5; O2SAT 99
[2024-09-04] MEDS ORDERED: SODIUM CHLORIDE 0.9% 250 ML IV ONE (17:34)
[2024-09-04] MEDS: MAGNESIUM SULFATE 3 GM in DEXTROSE 5%-WATER 100 ML IV ONE (17:36)
[2024-09-04 18:35] LABS: ANION GAP 14 mmol/L (8-16); CARBON DIOXIDE 18 mmol/L (22-29); CHLORIDE 83 mmol/L (98-107); CREATININE 0.67 mg/dL (0.60-1.30); GLOMERULAR FILTR. RATE CALC > 60 mL/min (>60); GLUCOSE,RANDOM 116 mg/dL (70-110); POTASSIUM 3.8 mmol/L (3.5-5.1); UREA NITROGEN, BLOOD 11 mg/dL (7-18)
[2024-09-04 18:37] LABS: SODIUM SERUM 115 mmol/L (136-145)
[2024-09-04 18:39] LABS: ALBUMIN 3.5 g/dL (3.4-5.0); BILIRUBIN,DIRECT 0.3 mg/dL (0.00-0.20); BILIRUBIN,TOTAL 1.1 mg/dL (0.1-1.0)
[2024-09-04 19:01] LABS: GLUCOMETER DEV NAME(LOC) ICU.S6; GLUCOSE,POINT OF CARE 105 MG/DL (70-110)
[2024-09-04 20:00] VITALS: BP 137/42; PULSE 54; RESP 18; TEMP 98.9; O2SAT 98
[2024-09-04] MEDS: CHLORHEXIDINE GLUCONATE 2% TOWELETTE [2'S/6'S] TP SCH (22:00)
[2024-09-05] VITALS: BP 113/57; PULSE 61; RESP 19; TEMP 98.7; O2SAT 97
[2024-09-05 01:42] LABS: GLUCOMETER DEV NAME(LOC) ICU.S6; GLUCOSE,POINT OF CARE 93 MG/DL (70-110)
[2024-09-05 04:00] VITALS: BP 125/41; PULSE 63; RESP 15; TEMP 98; O2SAT 98
[2024-09-05 05:32] LABS: BASOPHILS % (AUTO) 0.3 % (0.0-2.0); EOSINOPHILS % (AUTO) 0.5 % (1.0-6.0); HEMATOCRIT 38.6 % (41-53); HEMOGLOBIN 13.2 g/dL (13.5-17.5); LYMPHOCYTES # (AUTO) 0.9 K/uL (1.0-4.8); LYMPHOCYTES % (AUTO) 11.6 % (22.0-44.0); MEAN CORPUSCULAR HEMOGLOBIN 30.3 pg (26.0-34.0); MEAN CORPUSCULAR HGB CONC 34.2 G/dL (31.0-37.0); MEAN CORPUSCULAR VOLUME 88 fL (80-100); MONOCYTES # (AUTO) 0.6 K/uL (0.1-1.0); MONOCYTES % (AUTO) 7.4 % (2.0-9.0); NEUTROPHILS # (AUTO) 6.3 K/uL (1.8-7.7); NEUTROPHILS % (AUTO) 80.2 % (40.0-70.0); PLATELET COUNT (AUTO) 398 K/uL (150-450); RED BLOOD CELL COUNT(AUTO) 4.36 MIL/uL (4.50-5.90); RED CELL DISTRIBUTION WIDTH 13.7 % (11.5-14.5); WHITE BLOOD COUNT (AUTO) 7.9 K/uL (4.5-11.0)
[2024-09-05 06:04] LABS: ANION GAP 11 mmol/L (8-16); CALCIUM, TOTAL 8.4 mg/dL (8.8-10.5); CARBON DIOXIDE 21 mmol/L (22-29); CHLORIDE 87 mmol/L (98-107); CREATININE 0.75 mg/dL (0.60-1.30); GLOMERULAR FILTR. RATE CALC > 60 mL/min (>60); GLUCOSE,RANDOM 104 mg/dL (70-110); POTASSIUM 3.9 mmol/L (3.5-5.1); UREA NITROGEN, BLOOD 11 mg/dL (7-18)
[2024-09-05 06:06] LABS: SODIUM SERUM 119 mmol/L (136-145)
[2024-09-05 07:01] LABS: GLUCOMETER DEV NAME(LOC) ICU.S6; GLUCOSE,POINT OF CARE 113 MG/DL (70-110)
[2024-09-05 08:00] VITALS: BP 113/50; PULSE 67; RESP 14; TEMP 97.9; O2SAT 97
[2024-09-05 09:31] LABS: C.DIFF GDH ANTIGEN, Stool Negative (Negative); C.DIFF TOXINS A&B, Stool Negative (Negative)
[2024-09-05] MEDS: SODIUM CHLORIDE 3% 500 ML IV ONE (10:20)
[2024-09-05 11:27] LABS: CHLORIDE 86 mmol/L (98-107); POTASSIUM 3.5 mmol/L (3.5-5.1); SODIUM SERUM 117 mmol/L (136-145)
[2024-09-05 11:28] LABS: ANION GAP 15 mmol/L (8-16); CALCIUM, TOTAL 7.8 mg/dL (8.8-10.5); CARBON DIOXIDE 16 mmol/L (22-29); GLOMERULAR FILTR. RATE CALC > 60 mL/min (>60); GLUCOSE,RANDOM 109 mg/dL (70-110); UREA NITROGEN, BLOOD 11 mg/dL (7-18)
[2024-09-05 12:00] VITALS: BP 132/85; PULSE 55; RESP 15; TEMP 98; O2SAT 98
[2024-09-05 12:51] LABS: GLUCOMETER DEV NAME(LOC) ICU.S6; GLUCOSE,POINT OF CARE 99 MG/DL (70-110)
[2024-09-05 12:51] LABS: GLUCOMETER DEV NAME(LOC) ICUN.5; GLUCOSE,POINT OF CARE 96 MG/DL (70-110)
[2024-09-05 16:00] VITALS: BP_DIAS 103; PULSE 55; RESP 12; TEMP 98.3; O2SAT 98
[2024-09-05 17:19] LABS: ANION GAP 12 mmol/L (8-16); CALCIUM, TOTAL 8.1 mg/dL (8.8-10.5); CARBON DIOXIDE 22 mmol/L (22-29); CHLORIDE 91 mmol/L (98-107); CREATININE 0.89 mg/dL (0.60-1.30); GLOMERULAR FILTR. RATE CALC > 60 mL/min (>60); GLUCOSE,RANDOM 102 mg/dL (70-110); POTASSIUM 3.9 mmol/L (3.5-5.1); SODIUM SERUM 125 mmol/L (136-145); UREA NITROGEN, BLOOD 12 mg/dL (7-18)
[2024-09-05 17:25] LABS: GLUCOMETER DEV NAME(LOC) ICU.S6; GLUCOSE,POINT OF CARE 106 MG/DL (70-110)
[2024-09-05 20:00] VITALS: BP 118/65; PULSE 57; RESP 12; TEMP 98.1; O2SAT 100
[2024-09-06] VITALS (7 sets, daily range): BP systolic 108–140; BP diastolic 44–69; PULSE 52–65; RESP 14–22; TEMP 97.5–98; O2SAT 98–100
[2024-09-06 00:20] LABS: GLUCOMETER DEV NAME(LOC) ICUN.5; GLUCOSE,POINT OF CARE 78 MG/DL (70-110)
[2024-09-06 06:10] LABS: BASOPHILS % (AUTO) 0.7 % (0.0-2.0); EOSINOPHILS % (AUTO) 0.7 % (1.0-6.0); HEMATOCRIT 38.4 % (41-53); HEMOGLOBIN 13.5 g/dL (13.5-17.5); LYMPHOCYTES # (AUTO) 1.4 K/uL (1.0-4.8); LYMPHOCYTES % (AUTO) 20.9 % (22.0-44.0); MEAN CORPUSCULAR HEMOGLOBIN 30.6 pg (26.0-34.0); MEAN CORPUSCULAR HGB CONC 35.1 G/dL (31.0-37.0); MEAN CORPUSCULAR VOLUME 87 fL (80-100); MONOCYTES # (AUTO) 0.6 K/uL (0.1-1.0); MONOCYTES % (AUTO) 8.3 % (2.0-9.0); NEUTROPHILS # (AUTO) 4.7 K/uL (1.8-7.7); NEUTROPHILS % (AUTO) 69.4 % (40.0-70.0); PLATELET COUNT (AUTO) 420 K/uL (150-450); RED CELL DISTRIBUTION WIDTH 13.8 % (11.5-14.5); WHITE BLOOD COUNT (AUTO) 6.8 K/uL (4.5-11.0)
[2024-09-06 06:25] LABS: GLUCOMETER DEV NAME(LOC) ICU.S6; GLUCOSE,POINT OF CARE 98 MG/DL (70-110)
[2024-09-06 06:37] LABS: ANION GAP 10 mmol/L (8-16); CALCIUM, TOTAL 8.2 mg/dL (8.8-10.5); CARBON DIOXIDE 21 mmol/L (22-29); CHLORIDE 93 mmol/L (98-107); CREATININE 0.81 mg/dL (0.60-1.30); GLOMERULAR FILTR. RATE CALC > 60 mL/min (>60); GLUCOSE,RANDOM 97 mg/dL (70-110); PHOSPHORUS 1.6 mg/dL (2.5-4.9); POTASSIUM 4.2 mmol/L (3.5-5.1); UREA NITROGEN, BLOOD 15 mg/dL (7-18)
[2024-09-06 06:44] LABS: SODIUM SERUM 124 mmol/L (136-145)
[2024-09-06] MEDS: MetFORMIN HCL 500 MG TABLET PO SCH (08:00)
[2024-09-06] MEDS: SODIUM CHLORIDE 1 GM TABLET PO SCH (08:32)
[2024-09-06] MEDS: ATORVASTATIN CALCIUM 40 MG TABLET PO SCH (08:32)
[2024-09-06] MEDS: LISINOPRIL 5 MG TABLET PO SCH (08:33)
[2024-09-06] MEDS: SODIUM PHOS,M-BASIC-D-BASIC 30 MMOL in DEXTROSE 5%-WATER 250 ML IV ONE (11:52)
[2024-09-06 15:36] LABS: GLUCOMETER DEV NAME(LOC) ICUN.5; GLUCOSE,POINT OF CARE 81 MG/DL (70-110)
[2024-09-06 21:36] LABS: GLUCOMETER DEV NAME(LOC) 5S.2D; GLUCOSE,POINT OF CARE 115 MG/DL (70-110)
[2024-09-07] VITALS (8 sets, daily range): BP systolic 101–135; BP diastolic 49–68; PULSE 58–69; RESP 18–20; TEMP 97.4–97.9; O2SAT 97–100
[2024-09-07 02:41] LABS: GLUCOMETER DEV NAME(LOC) 5N.1D; GLUCOSE,POINT OF CARE 113 MG/DL (70-110)
[2024-09-07 09:16] LABS: GLUCOMETER DEV NAME(LOC) 5N.1D; GLUCOSE,POINT OF CARE 112 MG/DL (70-110)
[2024-09-07 11:50] LABS: ANION GAP 9 mmol/L (8-16); CALCIUM, TOTAL 8.6 mg/dL (8.8-10.5); CARBON DIOXIDE 25 mmol/L (22-29); CHLORIDE 98 mmol/L (98-107); CREATININE 1.06 mg/dL (0.60-1.30); GLOMERULAR FILTR. RATE CALC > 60 mL/min (>60); GLUCOSE,RANDOM 82 mg/dL (70-110); POTASSIUM 3.9 mmol/L (3.5-5.1); SODIUM SERUM 132 mmol/L (136-145); UREA NITROGEN, BLOOD 18 mg/dL (7-18)
[2024-09-07 12:46] LABS: GLUCOMETER DEV NAME(LOC) 5N.1D; GLUCOSE,POINT OF CARE 103 MG/DL (70-110)
[2024-09-07 17:26] LABS: GLUCOMETER DEV NAME(LOC) 5N.1D; GLUCOSE,POINT OF CARE 107 MG/DL (70-110)
[2024-09-08 00:34] VITALS: BP 132/70; PULSE 56; RESP 18; TEMP 97.8
[2024-09-08 01:36] LABS: GLUCOMETER DEV NAME(LOC) 5N.1D; GLUCOSE,POINT OF CARE 95 MG/DL (70-110)
[2024-09-08 04:53] VITALS: BP 120/68; PULSE 61; RESP 18; TEMP 97.5; O2SAT 99
[2024-09-08 07:09] LABS: ANION GAP 8 mmol/L (8-16); CALCIUM, TOTAL 8.4 mg/dL (8.8-10.5); CARBON DIOXIDE 25 mmol/L (22-29); CHLORIDE 99 mmol/L (98-107); GLOMERULAR FILTR. RATE CALC > 60 mL/min (>60); GLUCOSE,RANDOM 93 mg/dL (70-110); POTASSIUM 4.2 mmol/L (3.5-5.1); SODIUM SERUM 132 mmol/L (136-145); UREA NITROGEN, BLOOD 17 mg/dL (7-18)
[2024-09-08 07:15] VITALS: BP 139/69; PULSE 60; RESP 18; TEMP 98; O2SAT 98
[2024-09-08 08:10] LABS: GLUCOMETER DEV NAME(LOC) 5N.1D; GLUCOSE,POINT OF CARE 109 MG/DL (70-110)
[2024-09-08] MEDS ORDERED: SODI100067 PO (10:48)
[2024-09-08 11:50] VITALS: BP 131/68; PULSE 60; RESP 18; TEMP 98; O2SAT 99
[2024-09-08 12:07] LABS: GLUCOMETER DEV NAME(LOC) 5N.1D; GLUCOSE,POINT OF CARE 89 MG/DL (70-110)
== END 2024-09-08 13:30 | disposition home or self-care (01) | DRG 640 ==
LOC: EMS 20:25 → EDBEDREQ 22:24 → EDH 22:26 → ICU 09-04 16:25 → 5S 09-06 15:19
PROVIDERS: ADMIT Internal Medicine; ATTEND Internal Medicine
DX: E87.1 Hypo-osmolality and hyponatremia (principal); G93.41 Metabolic encephalopathy; E27.40 Unspecified adrenocortical insufficiency; E83.42 Hypomagnesemia; R00.1 Bradycardia, unspecified; E11.9 Type 2 diabetes mellitus without complications; E87.20 Acidosis, unspecified; E87.8 Other disorders of electrolyte and fluid balance, not elsewhere classified; I10 Essential (primary) hypertension; E78.00 Pure hypercholesterolemia, unspecified; Z79.84 Long term (current) use of oral hypoglycemic drugs; Z79.899 Other long term (current) drug therapy
CPT/HCPCS: 71045; 80048; 80076; 81001; 82040; 82533; 82962; 83690; 83735; 83880; 83930; 83935; 84100; 84132; 84295; 84300; 84443; 84484; 85025; 87040; 87081; 87324; 87449; 93005; 99291; G0480; J1644; J3475; J3490; J7030; J7050; J7060; 36415-L1; 36415-TC; X7700